=== PATIENT | female | born 1995 | race Caucasian/White ===

== ENCOUNTER → 2017-04-28 01:35 | Observation (INO) ==
[2017-04-28 00:13] LABS: Bilirubin,Urine Negative (Negative); Blood,Urine Negative (Negative); Clarity,Urine Cloudy (Clear); Color,Urine Yellow (Yellow); Glucose,Urine (UA) Normal (Normal); Ketones,Urine Negative (Negative); Leukocyte Esterase,Urine Large (Negative); Nitrite,Urine Negative (Negative); PH,Urine 7.5 pH Units (5.0-8.0); Protein,Urine Negative (Neg-Trace); Specific Gravity,Urine 1.015 (1.010-1.025); Urobilinogen,Urine Normal (Normal)
[2017-04-28 00:15] LABS: Bacteria,Urine Many per hpf (None-Few); Hyaline Casts,Urine None Seen per lpf (None-Few); RBC,Urine 0-3 per hpf (0-3); Squamous Epithelial Cell,Urine Many per lpf (None-Few); WBC,Urine 50-100 per hpf (0-3)
[~2017-04-28 01:35] MED LIST: Terbutaline 1 MG/ML VIAL SQ ONE
--- NOTE | 2017-04-28 05:41 | OB/GYN Progress Note ---
Date of Encounter: 04/28/17 Time of Encounter: 03:00 - Assessment and Plan (1) First in adolescent 16 years of age or older in third trimester Status: Acute (2) 33 weeks gestation of Status: Acute (3) uterine contractions in third trimester, antepartum Status: Acute Contractions stopped with terbutaline patient will be discharged home she will follow up with her own [employer] this week Subjective - Subjective Interval history: Patient is a 21-year-old 1 para 0 at approximately 33 weeks with presented to labor and delivery complaining of contractions. Patient gets her care at another facility. Patient states she lives causing here and came to this hospital and wanted to be transferred to her hospital if truly in labor. Patient was having occasional contractions on admission but no significant cervical change. Patient denies any leaking of fluid or vaginal bleeding. She was given a dose of terbutaline 0.25 mg 1 and contractions spaced out and stopped. Patient's urinalysis was unremarkable. Patient was observed no further change was noted and she was discharged home Antepartum ROS: contractions Objective - Vital Signs Vital Signs: Intake and Output 04/27/17 04/27/17 04/28/17 15:59 23:59 07:59 Other: Weight 95.8 kg - Exam FHR: category 1 FHR comments: heart tones 140s reactive contractions every 2-4 minutes Abdomen: Present: gravid Uterus: Present: firm Cervical dilation: 1 Cervix effacement: 30 station: -3 - Labs Labs: Abnormal lab results Urine Clarity Cloudy (Clear) A 04/28/17 00:07 Ur Leukocyte Esterase Large (Negative) H 04/28/17 00:07 Urine Microscopic WBC 50-100 per hpf (0-3) H 04/28/17 00:07 Ur Squamous Epith Cells Many per lpf (None-Few) H 04/28/17 00:07 Urine Bacteria Many per hpf (None-Few) H 04/28/17 00:07 Ur Culture Indicated? YES (NO) A 04/28/17 00:07
== END | disposition home or self-care (01) ==
LOC: 1NENULAB
PROVIDERS: ADMIT Advanced Practice Midwife; ATTEND Advanced Practice Midwife